=== PATIENT | female | born 1935 | race Caucasian/White ===

== ENCOUNTER 2021-03-06 21:52 | Emergency (ER) | payer MEDICARE, OTHER ==
[~2021-03-06] VITALS: Ht 167.6 cm; Wt 46.7 kg
--- NOTE | 2021-03-06 22:20 | NUR ---
PT BIBRA 87 FROM HOME WITH R EYE BROW LACERATION. PT ALSO PRESENTS WITH R SHOULDER PAIN S/P SLIP AND FALL. PT RESPONDS WHEN SPOKEN TO, BUT KEEPS EYES CLOSED. PT ALERT AND ORIENTED X3. HAS A SCRATCH PRESENT ON R SHOULDER.
[2021-03-06] MEDS ORDERED: TDAP [DIPH/PERTUSSIS/TET] 0.5 ML VIAL IM ONE ×2 (22:22→22:30)
[2021-03-06] MEDS ORDERED: IV NS 0.9% 1,000 ML BAG IV ONE (22:30)
--- NOTE | 2021-03-06 22:34 | NUR ---
rad at bedside.
--- NOTE | 2021-03-06 22:51 | NUR ---
PT GOING TO CT.
--- NOTE | 2021-03-06 22:55 | NUR ---
UPDATED BOTH SONS IN THE WAITING ROOM REQUEST PER PT.
--- NOTE | 2021-03-06 23:03 | NUR ---
pt returned from ct.
[2021-03-06] MEDS ORDERED: ACETAMINOPHEN W/ CODEINE#3 1 EA TABLET ONE (23:17)
[2021-03-06] MEDS ORDERED: ACETAMINOPHEN W/ CODEINE#3 1 EA TABLET PO ONE (23:30)
[2021-03-06] MEDS ORDERED: hydrALAZINE HCL IV 20 MG VIAL ONE (23:30)
[2021-03-06] MEDS ORDERED: ONDANSETRON HCL/PF 4 MG/2 ML VIAL ONE (23:30)
[2021-03-06] MEDS ORDERED: ACETAMINOPHEN 325 MG TABLET PO ONE (23:30)
[2021-03-06] MEDS ORDERED: MECLIZINE HCL 25 MG TABLET ONE (23:31)
[2021-03-06] MEDS ORDERED: LIDOCAINE 1%-EPI 1:100,000 20 ML VIAL ONE (23:37)
[2021-03-06] MEDS ORDERED: ACETAMINOPHEN ES 500 MG TABLET ONE (23:58)
[2021-03-07 00:27] VITALS: BP 111/60
--- NOTE | 2021-03-07 00:27 | NUR ---
Patient discharged to home in stable condition. Written and verbal after care instructions given. Patient verbalizes understanding of instruction RX given.
== END 2021-03-07 00:28 | disposition home or self-care (01) ==
LOC: ER 21:54
DX: S01.81XA Laceration without foreign body of other part of head, initial encounter (principal); S40.011A Contusion of right shoulder, initial encounter; R51.9 Headache, unspecified; I10 Essential (primary) hypertension; Z85.118 Personal history of other malignant neoplasm of bronchus and lung; Z88.5 Allergy status to narcotic agent; W01.198A Fall on same level from slipping, tripping and stumbling with subsequent striking against other object, initial encounter; Y93.89 Activity, other specified; Y92.89 Other specified places as the place of occurrence of the external cause; Y99.8 Other external cause status
CPT/HCPCS: 70450; 72125; 73030; 90471; 90715; 96360; 99285; A6403; J3490; J7030; J0360; J2405; J8597

== ENCOUNTER 2021-12-15 21:03 | Inpatient (IN) | payer MEDICARE, OTHER ==
[~2021-12-15] VITALS: Ht 170.2 cm; Wt 45.8 kg
--- NOTE | 2021-12-15 21:45 | NUR ---
[id number]. NAUSEA, VOMMITNG AND DIARRHEA X 2 DAYS. TEMP 100.7. PLACED ON BED, AAOX4, NO WEAKNESS ABLE TO WALK VERBALIZE.
--- NOTE | 2021-12-15 22:20 | NUR ---
AT BED SIDE
[2021-12-15] MEDS ORDERED: ONDANSETRON HCL/PF 4 MG/2 ML VIAL IVP ONE (23:00)
[2021-12-15] MEDS ORDERED: IV NS 0.9% 500 ML BAG IV ONE (23:00)
[2021-12-15] MEDS ORDERED: ACETAMINOPHEN ES 500 MG TABLET PO ONE (23:00)
[2021-12-15 23:08] LABS: HEMATOCRIT 31 % (33-45); HEMOGLOBIN 10.1 g/dL (11.5-14.8); LYMPHOCYTES # (AUTO) 1.2 K/uL (0.8-4.8); LYMPHOCYTES % (AUTO) 9.8 % (20.0-44.0); MONOCYTES # (AUTO) 1.6 K/uL (0.1-1.30); NEUTROPHILS # (AUTO) 9.1 K/uL (1.8-8.9); RED BLOOD CELL COUNT(AUTO) 3.49 MIL/uL (4.0-5.2)
[2021-12-15 23:14] LABS: BASOPHILS % (AUTO) 0.3 % (0.0-2.0); EOSINOPHILS % (AUTO) 0.5 % (0.0-6.0); MEAN CORPUSCULAR HGB CONC 33 g/dl (31.0-36.0); MEAN CORPUSCULAR VOLUME 87 fL (82-100); MONOCYTES % (AUTO) 13.3 % (2.0-12.0); NEUTROPHILS % (AUTO) 76.1 % (43.0-81.0); PLATELET COUNT (AUTO) 162 K/uL (150-450)
[2021-12-15] MEDS ORDERED: ONDANSETRON HCL/PF 4 MG/2 ML VIAL ONE (23:16)
[2021-12-15] MEDS ORDERED: ACETAMINOPHEN 325 MG TABLET ONE (23:16)
--- NOTE | 2021-12-15 23:25 | NUR ---
PATIENT WENT FOR CT ABDOMEN AND PELVIS [facility]IA [facility]
[2021-12-15 23:55] LABS: BAND % (MANUAL) 2 % (0.0-5.0); LYMPHOCYTES % (MANUAL) 12 % (16-48)
[2021-12-15 23:56] LABS: EOSINOPHILS % (MANUAL) 1 % (0-4); MONOCYTES % (MANUAL) 10 % (0-11.0); NEUTROPHILS % (MANUAL) 75 (42-76)
--- NOTE | 2021-12-16 00:08 | NUR ---
COVID SWAB COLLECTED
[2021-12-16] MEDS ORDERED: ASPIRIN 325 MG TABLET ONE (00:27)
[2021-12-16] MEDS ORDERED: IV NS 0.9% 1,000 ML BAG IV ONE (00:30)
[2021-12-16] MEDS ORDERED: ASPIRIN 325 MG TABLET PO ONE (00:30)
[2021-12-16 00:47] LABS: CALCIUM, SERUM 9.5 mg/dL (8.5-10.1); CARBON DIOXIDE 22 mmol/L (21-32); CHLORIDE 103 mmol/L (98-107); CREATININE 0.8 mg/dL (0.6-1.3); GLUCOSE 111 mg/dL (74-106); SODIUM SERUM 134 mmol/L (136-145); UREA NITROGEN, BLOOD 22 mg/dL (7-18)
[2021-12-16 01:18] LABS: ALANINE AMINOTRANSFERASE 20 U/L (12-78); ALKALINE PHOSPHATASE 198 U/L (46-116); ASPARTATE AMINOTRANSFERASE 39 U/L (15-37); BILIRUBIN,DIRECT 0.1 mg/dL (0.0-0.2); TOTAL PROTEIN, SERUM 6.9 g/dL (6.4-8.2)
--- NOTE | 2021-12-16 01:33 | NUR ---
EMT AT BEDSIDE FOR REPEAT EKG.
--- NOTE | 2021-12-16 01:48 | NUR ---
URINE COLLECTED AND SENT TO LAB
[2021-12-16 02:15] LABS: BILIRUBIN,URINE NEGATIVE (NEGATIVE); COLOR,URINE YELLOW (YELLOW); LEUKOCYTE ESTERASE ,URINE NEGATIVE (NEGATIVE); NITRITE, URINE NEGATIVE (NEGATIVE); PH,URINE 5.5 (5.0-8.0); PROTEIN,URINE NEGATIVE (NEGATIVE); UGLUCOSE NEGATIVE (NEGATIVE); UROBILINOGEN,URINE 0.2 EU/dL (0.2)
--- NOTE | 2021-12-16 02:46 | NUR ---
TROPONIN 109
--- NOTE | 2021-12-16 03:10 | NUR ---
MRSA SWAB COLLECTED AND SENT TO LAB. PATIENT'S BELONGINGS LIST DONE.
--- NOTE | 2021-12-16 03:15 | NUR ---
REPORT GIVEN TO LUDMILA PEARCE
[2021-12-16] MEDS ORDERED: HYDROCODONE/APAP 5/325MG TABLET PO PRN (03:30)
[2021-12-16] MEDS ORDERED: MAGNESIUM HYDROXIDE 30 ML UDC PO PRN (03:30)
[2021-12-16] MEDS ORDERED: ACETAMINOPHEN 325 MG TABLET PO PRN (03:30)
[2021-12-16] MEDS ORDERED: ONDANSETRON HCL/PF 4 MG/2 ML VIAL IVP PRN (03:30)
[2021-12-16] MEDS ORDERED: Z GUARD REMEDY 4 OZ OINT TP PRN (03:30)
--- NOTE | 2021-12-16 03:50 | NUR ---
TELE/DETAIL SERGEANT NOTE RECEIVED PT FROM E.R. VIA RENEE TO [id number]. PT AWAKE, A/OX4, ABLE TO VERBALIZE ALL NEEDS. PT REPORTED SHE N/V AND DIARRHEA FOR 2 DAYS AND CAME TO THE E.R. NO FURTHER DIARRHEA UPON ADMISSION. DENIES ANY NAUSEA AT THIS TIME, DENIES ANY DUTTA/DIZZINESS. RESPIRATIONS EVEN/UNLABORED. ON ROOM AIR, SPO2 98%. IV SITE: R-FA #20G INTACT/PATENT/FLUSHES WELL. PT ABLE TO AMBULATE; STATES SHE USES A CANE AT HOME BUT ONLY WHEN SHE GOES OUT, OTHERWISE REPORTS SHE'S STABLE AMBULATING INSIDE HER HOME. PT PROVIDED WITH BEDSIDE COMMODE. ALL SAFETY INSTRUCTIONS PROVIDED. ORIENTED TO UNIT AND STAFF, AND PROVIDED HEALTH AND MED TEACHINGS. PT VERBALIZED UNDERSTANDING. CONNECTED TO TELE MONITOR, CURRENTLY READING SB, HR 50. SAFETY MEASURES IN PLACE, BED IN LOWEST LOCKED POSITION, S/R UPX2, CALL LIGHT WITHIN REACH. WILL CONT TO MONITOR.
--- NOTE | 2021-12-16 03:53 | NUR ---
TRANSFERRED TO THIRD FLOOR UNDER ACLS.
--- NOTE | 2021-12-16 04:15 | NUR ---
RN NOTE PT'S BP 86/40, WITH MANUAL BP RE-CHECK SAME LEVEL. PT AWAKE, NO CHANGE IN LOC. REPORTED TO ON-CALL, [facility] WITH ORDER TO GIVE IV LR 1L BOLUS
[2021-12-16] MEDS ORDERED: IV LR 1000 ML 1,000 ML IV ONE (04:30)
[2021-12-16 04:44] VITALS: BP 86/40
[2021-12-16] MEDS ORDERED: CIPROFLOXACIN IV RTU 200 ML IV ONE (05:10)
[2021-12-16] MEDS ORDERED: METRONIDAZOLE 500MG/ NS 100ML 100 ML IV ONE (05:10)
[2021-12-16] MEDS: CIPROFLOXACIN IV RTU 400 MG in PREMIX 1 EA IV SCH ×2 (05:25→16:31)
--- NOTE | 2021-12-16 05:48 | NUR ---
RN NOTE BP 98/65, HR 57. PT INTERMITTENTLY SLEEPING, EASILY AROUSABLE. NO DISTRESS.
[2021-12-16] MEDS: METRONIDAZOLE 500MG/ NS 100ML 500 MG in PREMIX 1 EA IV SCH ×3 (06:46→20:58)
[2021-12-16 06:48] LABS: BASOPHILS % (AUTO) 0.2 % (0.0-2.0); EOSINOPHILS % (AUTO) 0.3 % (0.0-6.0); HEMATOCRIT 26 % (33-45); HEMOGLOBIN 8.6 g/dL (11.5-14.8); LYMPHOCYTES # (AUTO) 1.6 K/uL (0.8-4.8); MEAN CORPUSCULAR HGB CONC 33 g/dl (31.0-36.0); MEAN CORPUSCULAR VOLUME 89 fL (82-100); MONOCYTES # (AUTO) 1.2 K/uL (0.1-1.30); MONOCYTES % (AUTO) 14.8 % (2.0-12.0); NEUTROPHILS # (AUTO) 5.4 K/uL (1.8-8.9); NEUTROPHILS % (AUTO) 65.7 % (43.0-81.0); PLATELET COUNT (AUTO) 112 K/uL (150-450); RED BLOOD CELL COUNT(AUTO) 2.93 MIL/uL (4.0-5.2); WHITE BLOOD COUNT (AUTO) 8.2 K/uL (4.3-11.0)
--- NOTE | 2021-12-16 06:51 | NUR ---
RN NOTE BP 104/56 AT THIS TIME. TELE MONITOR READING SB, HR 56. PT AWAKE, ASSISTED TO BEDSIDE COMMODE TO VOID. NO ACUTE DISTRESS. SAFETY MEASURES MAINTAINED.
[2021-12-16] MEDS ORDERED: SPIR25TA6 PO (07:13)
[2021-12-16] MEDS ORDERED: PRAV20TA4 PO (07:13)
[2021-12-16] MEDS ORDERED: TRAV2.5D7 EACHEYE (07:13)
[2021-12-16] MEDS ORDERED: AZIT250T13 PO (07:13)
[2021-12-16] MEDS ORDERED: DILT180T PO (07:13)
[2021-12-16] MEDS ORDERED: COLE625T14 PO (07:13)
[2021-12-16] MEDS ORDERED: PROP20TA19 PO (07:13)
[2021-12-16] MEDS ORDERED: MONT10TA22 PO (07:13)
--- NOTE | 2021-12-16 07:19 | NUR ---
REAMING MACHINE OPERATOR NOTES RECEIVED PATIENT IN BED AWAKE. ALERT AND ORIENTED TIMES 4. NO PAIN NOTED. NO SOB NOTED. NO DISTRESS NOTED. ABLE TO MAKE NEEDS KNOWN. IV ACCESS ON THE RFA #20 INTACT AND PATENT . ON TELE MONITOR READING SR. MONITORING FOR LOW BP. CURRENTLY YQ=652/49. ALL SAFETY MEASURES IN PLACE . BED SIDE COMMODE CLOSE TO THE PATIENT.BED LOCKED IN THE LOWEST POSITION. CALL LIGHT AND TABLE IN REACH. WILL CONTINUE TO MONITOR CLOSELY.
[2021-12-16] MEDS: PANTOPRAZOLE 40 MG TABLET.DR PO SCH (07:41)
[2021-12-16] MEDS ORDERED: CYAN500T64 PO (07:57)
[2021-12-16] MEDS ORDERED: ASPI-1169 PO (07:57)
[2021-12-16] MEDS ORDERED: CRAN400C PO (07:57)
[2021-12-16] MEDS ORDERED: FAMO40TA7 PO (07:57)
[2021-12-16] MEDS ORDERED: AMYL1CAP58 PO (07:57)
[2021-12-16] MEDS ORDERED: GUAI600T53 PO (07:57)
[2021-12-16] MEDS ORDERED: LACT1CAP57 PO (07:57)
[2021-12-16] MEDS ORDERED: CHOL200013 PO (07:57)
[2021-12-16 08:00] VITALS: BP 89/41
[2021-12-16 08:37] LABS: CALCIUM, SERUM 8.8 mg/dL (8.5-10.1); CREATININE 1.1 mg/dL (0.6-1.3); MAGNESIUM 1.3 mg/dL (1.8-2.4); POTASSIUM 4.3 mmol/L (3.5-5.1)
[2021-12-16] MEDS: ENOXAPARIN SODIUM 40 MG/0.4 ML DISP.SYRIN SQ SCH (08:44)
[2021-12-16] MEDS: ASPIRIN 81 MG TAB.CHEW PO SCH (09:04)
[2021-12-16] MEDS: MONTELUKAST SODIUM (10MG) 10 MG TABLET PO SCH (09:05)
[2021-12-16] MEDS: IV NS 0.9% 1,000 ML IV PRN (10:19)
[2021-12-16] MEDS: Magnesium 1GM/D5W 100ML PREMIX 100 ML IV SCH ×4 (10:28→12:30)
[2021-12-16 11:59] LABS: ALBUMIN 2.6 g/dL (3.4-5.0); BILIRUBIN,TOTAL 0.8 mg/dL (0.2-1.0); TOTAL PROTEIN, SERUM 5.8 g/dL (6.4-8.2)
[2021-12-16] MEDS: LIPASE/PROTEASE/AMYLASE 1 EACH CAPSULE.DR PO SCH ×2 (13:11→17:18)
[2021-12-16] MEDS ORDERED: MISCELLANEOUS MED 1 EA EA XX ONE (15:00)
[2021-12-16] MEDS ORDERED: MINERAL OIL 133 ML (PYXIS) 1 EA ENEMA RC ONE (15:30)
[2021-12-16 16:00] VITALS: BP 111/48
--- NOTE | 2021-12-16 17:00 | NUR ---
RN NOTES CALLED RADIOLOGY SPOKE WITH MEGAN FOR XR OF THE SMALL BOWEL FOLLOW-THROUGH. BUT HE STATED THEY ARE BUSY WITH ER AND THAT WILL NOT HAPPEN TODAY. IT WILL BE DONE TOMORROW MORNING.
--- NOTE | 2021-12-16 18:28 | NUR ---
STRIP MILL OPERATOR CLOSING NOTES PATIENT IN BED AWAKE. ALERT AND ORIENTED TIMES 4. NO PAIN NOTED. NO SOB NOTED. NO DISTRESS NOTED. ABLE TO MAKE NEEDS KNOWN. IV ACCESS ON THE RFA #20 INTACT AND PATENT . ON TELE MONITOR READING SR 72. MONITORING FOR LOW BP. PATIENT'S LATEST XE=095/48, P=64 ALL SAFETY MEASURES IN PLACE . ALL DUE MEDS GIVEN ORDERED. REPLACED MAGNESIUM WITH 400 ML MAGNESIUM. ENEMA GIVEN. PATIENT ABLE TO HAVE BOWEL MOVEMENT OF THE SMALL ROUND STOOL. NO PAIN NOTED. NO SOB NOTED.2 SONS VISITED THE PATIENT. PATIENT ABLE TO AMBULATE TO THE BATHROOM WITH ASSISTANCE AND SUPERVISION. BED LOCKED IN THE LOWEST POSITION. CALL LIGHT AND TABLE IN REACH. WILL ENDORSE FOR KENIA.
--- NOTE | 2021-12-16 19:30 | NUR ---
COMPLIANCE SPEC OPENING NOTE PATIENT AWAKE IN BED WATCHING TV, ALERT/ORIENTED X 4, PT ABLE TO MAKE NEEDS KNOWN. PT STABLE ON RA, NO S/S OF DISTRESS OR SOB NOTED, BREATHING EVEN AND UNLABORED. PATIENT ON TELE MONITOR READING SINUS RHYTHM, HR: 69. PATIENT IS AMBULATORY TO BATHROOM WITH SBA. IV ACCESS ON RIGHT FOREARM #20G INTACT AND INFUSING NS @ 100 ML/HR. SAFETY MEASURES IN PLACE: CALL LIGHT WITHIN REACH, SIDE RAILS UP X 2, BED LOCKED IN LOWEST POSITION, BED ALARM ON. WILL CONTINUE PLAN OF CARE
[2021-12-16 20:00] VITALS: BP 117/57
[2021-12-16] MEDS: LATANOPROST EYE DROP 0.005% 2.5 ML BOTTLE OP SCH (21:33)
--- NOTE | 2021-12-16 21:34 | NUR ---
STAMP MOUNTER NOTE LATANOPROST EYE DROPS NOT ADMINISTERED BECAUSE MEDICATION WAS NOT IN CASSETTE OR AT BEDSIDE. WILL ENDORSE TO DAY SHIFT IN THE AM TO CALL LAB
--- NOTE | 2021-12-16 22:44 | NUR ---
PT TRANSFERRED TO CARE AT 2220. PT STABLE. ASLEEP IN BED. BREATHING EVEN AND UNLABORED. WILL CONTINUE TO MONITOR.
[2021-12-17] VITALS: BP 127/64
[2021-12-17] MEDS: IV NS 0.9% 1,000 ML IV PRN (00:29)
[2021-12-17 04:00] VITALS: BP 144/68
[2021-12-17] MEDS: CIPROFLOXACIN IV RTU 400 MG in PREMIX 1 EA IV SCH ×2 (04:08→15:29)
[2021-12-17] MEDS: METRONIDAZOLE 500MG/ NS 100ML 500 MG in PREMIX 1 EA IV SCH ×3 (05:57→23:01)
[2021-12-17 06:27] LABS: HEMATOCRIT 29 % (33-45); HEMOGLOBIN 9.5 g/dL (11.5-14.8); LYMPHOCYTES # (AUTO) 1.1 K/uL (0.8-4.8); MEAN CORPUSCULAR HGB CONC 33 g/dl (31.0-36.0); MEAN CORPUSCULAR VOLUME 89 fL (82-100); NEUTROPHILS % (AUTO) 64.2 % (43.0-81.0); PLATELET COUNT (AUTO) 101 K/uL (150-450); RED BLOOD CELL COUNT(AUTO) 3.28 MIL/uL (4.0-5.2); WHITE BLOOD COUNT (AUTO) 6.2 K/uL (4.3-11.0)
--- NOTE | 2021-12-17 06:42 | NUR ---
RN CLOSING NOTES PT IN BED, ASLEEP, AWAKENS TO VERBAL STIMULI. AOx4, ABLE TO MAKE NEEDS KNOWN. ON RA AND TOLERATING WELL. NO SOB NOTED. NO S/SX OF RESPIRATORY DISTRESS NOTED. BREATHING EVEN AND UNLABORED. TELE MONITOR DETECTS SINUS RHYTHM IV ACCES IN LFA #20 G RUNNING NS @ 100 ML/HR. ALL ORDERS CARRIED OUT. ALL NEEDS MET. PT KEPT CLEAN AND DRY. SAFETY PRECAUTIONS IN PLACE: BED IN LOWEST, LOCKED POSITION, SIDERAILS UPx2, AND BRAKES ON. TABLE AND CALL LIGHT WITHIN REACH. WILL CONTINUE TO MONITOR.
[2021-12-17 06:46] LABS: CHOLESTEROL 94 mg/dL (<200); HDL CHOLESTEROL 33 mg/dL (40-60); LDL 46 mg/dL (0-99); TRIGLYCERIDES 54 mg/dL (30-150)
[2021-12-17 06:49] LABS: ALANINE AMINOTRANSFERASE 13 U/L (12-78); ALBUMIN 2.6 g/dL (3.4-5.0); ALKALINE PHOSPHATASE 153 U/L (46-116); ASPARTATE AMINOTRANSFERASE 14 U/L (15-37); BILIRUBIN,TOTAL 0.7 mg/dL (0.2-1.0); CHLORIDE 105 mmol/L (98-107); GLUCOSE 193 mg/dL (74-106); PHOSPHORUS 2.5 mg/dL (2.5-4.9); POTASSIUM 3.8 mmol/L (3.5-5.1); SODIUM SERUM 135 mmol/L (136-145); TOTAL PROTEIN, SERUM 6.1 g/dL (6.4-8.2); UREA NITROGEN, BLOOD 15 mg/dL (7-18)
--- NOTE | 2021-12-17 06:53 | NUR ---
RT NOTE EKG UNABLE TO BE PERFORMED DUE TO EQUIPMENT FAILURE. RN AWARE. RT FOOD SERVICE ASSOCIATE AWARE.
[2021-12-17 07:11] LABS: CALCIUM, SERUM 8.4 mg/dL (8.5-10.1); CARBON DIOXIDE 20 mmol/L (21-32); MAGNESIUM 1.5 mg/dL (1.8-2.4)
[2021-12-17 08:00] VITALS: BP 133/64
--- NOTE | 2021-12-17 08:00 | NUR ---
RN NOTES PATIENT AMBULATORY W/ STEADY GAIT, ABLE TO GO TO THE BATHROOM. NOT IN ACUTE DISTRESS. VERBALLY RESPONSIVE AND ABLE TO MAKE NEEDS KNOWN. IV LINE INTACT AND PATENT. SAFETY MEASURES IN PLACE.
[2021-12-17] MEDS: MONTELUKAST SODIUM (10MG) 10 MG TABLET PO SCH (08:23)
[2021-12-17] MEDS: LIPASE/PROTEASE/AMYLASE 1 EACH CAPSULE.DR PO SCH ×4 (08:23→18:48)
[2021-12-17] MEDS: ASPIRIN 81 MG TAB.CHEW PO SCH (08:23)
[2021-12-17] MEDS: ENOXAPARIN SODIUM 40 MG/0.4 ML DISP.SYRIN SQ SCH (08:23)
[2021-12-17] MEDS: PANTOPRAZOLE 40 MG TABLET.DR PO SCH (08:23)
[2021-12-17 10:29] LABS: MONOCYTES % (AUTO) 16.8 % (2.0-12.0)
--- NOTE | 2021-12-17 10:40 | NUR ---
RN NOTES PATIENT REFUSED TO SIGN CONSENT FOR CT ANGIO; DOES NOT WANT PROCEDURE TO BE DONE.
[2021-12-17] MEDS: METOPROLOL TARTRATE 50 MG TABLET PO SCH ×3 (11:26→18:48)
[2021-12-17] MEDS ORDERED: MAGNESIUM OXIDE 400 MG TABLET PO ONE (11:30)
[2021-12-17] MEDS ORDERED: DIATR MEGLU/DIATRIZOATE SODIUM 120 ML BOTTLE (GASTROGRAPHIN) ONE (11:59)
--- NOTE | 2021-12-17 13:56 | NUR ---
RN NOTES PATIENT RETURNED FROM RADIOLOGY VIA WHEELCHAIR ACCOMPANIED BY 1 TECH; KEPT NPO AT THIS TIME PER RADIOLOGY FOR X-RAY SERIES CONTINUATION.
[2021-12-17 16:00] VITALS: BP 129/63
--- NOTE | 2021-12-17 17:05 | NUR ---
RN NOTES MARYSOL, SON, AT BEDSIDE TO SEE PATIENT. REMINDED PATIENT THAT SHE'S STILL NPO STATUS FOLLOWING SMALL BOWEL X-RAY SERIES; VERBALIZED UNDERSTANDING.
--- NOTE | 2021-12-17 17:16 | NUR ---
RN NOTES PM MEDS ON HOLD D/T NPO STATUS FOR SMALL BOWEL SERIES.
--- NOTE | 2021-12-17 17:47 | NUR ---
RN NOTES SPOKE W/ BHARATH FROM RADIOLOGY. PER BHARATH, PATIENT NEEDS TO BE ON RIGHT LATERAL POSITION MUCH POSSIBLE FOR X-RAY IMAGE LATER; REMAIN NPO AT THIS TIME. PATIENT MADE AWARE AND VERBALIZED UNDERSTANDING.
--- NOTE | 2021-12-17 18:23 | NUR ---
RN NOTES [facility] AT BEDSIDE FOR X-RAY. OKAY FOR PATIENT TO HAVE SOME WATER BUT NO FOOD FOR NOW.
--- NOTE | 2021-12-17 19:45 | NUR ---
CLINICAL APPEALS RN OPENING NOTE PATIENT AWAKE IN BED WATCHING TV, ALERT/ORIENTED X 4, PT ABLE TO MAKE NEEDS KNOWN. PT STABLE ON RA, NO S/S OF DISTRESS OR SOB NOTED, BREATHING EVEN AND UNLABORED. PATIENT IS AMBULATORY TO BATHROOM WITH SBA, HAD 1 EPISODE OF DIARRHEA SINCE XR SMALL BOWEL FOLLOW THROUGH. IV ACCESS ON LEFT FOREARM #20G INTACT AND INFUSING NS @ 100 ML/HR. SAFETY MEASURES IN PLACE: CALL LIGHT WITHIN REACH, SIDE RAILS UP X 2, BED LOCKED IN LOWEST POSITION, BED ALARM ON. WILL CONTINUE PLAN OF CARE
[2021-12-17 20:00] VITALS: BP 138/70
--- NOTE | 2021-12-17 21:30 | NUR ---
MS RN NOTE FLAGYL NOT AVAILABLE IN MED ROOM OR OMNICELL. MEDICATION ORDER GIVEN TO NURSING STEAM TENDER. AWAITING TO SEE IF MEDICATION IS AVAILABLE IN HOSPITAL
[2021-12-17] MEDS ORDERED: METRONIDAZOLE 500MG/ NS 100ML 200 ML IV ONE (22:22)
[2021-12-17] MEDS: LATANOPROST EYE DROP 0.005% 2.5 ML BOTTLE OP SCH (22:29)
[2021-12-18] MEDS: IV NS 0.9% 1,000 ML IV PRN (01:40)
[2021-12-18] MEDS: CIPROFLOXACIN IV RTU 400 MG in PREMIX 1 EA IV SCH (03:50)
[2021-12-18] MEDS: METRONIDAZOLE 500MG/ NS 100ML 500 MG in PREMIX 1 EA IV SCH ×2 (05:46→12:25)
[2021-12-18] MEDS: METOPROLOL TARTRATE 50 MG TABLET PO SCH ×2 (05:56)
--- NOTE | 2021-12-18 06:43 | NUR ---
MS RN CLOSING NOTES PATIENT AWAKE IN BED WATCHING TV, ALERT/ORIENTED X 4, PT ABLE TO MAKE NEEDS KNOWN. PT STABLE ON RA, NO S/S OF DISTRESS OR SOB NOTED, BREATHING EVEN AND UNLABORED. PATIENT HAD 3 EPISODES OF DIARRHEA AT THE BEGINNING OF SHIFT S/P XR SMALL BOWEL FOLLOW THROUGH, PATIENT NO LONGER EXPERIENCING DIARRHEA. IV ACCESS ON LEFT FOREARM #20G INTACT AND INFUSING NS @ 100 ML/HR. MEDICATIONS GIVEN ORDERED, PT NEEDS MET THROUGHOUT SHIFT, NO SIGNIFICANT CHANGES. SAFETY MEASURES IN PLACE: CALL LIGHT WITHIN REACH, SIDE RAILS UP X 2, BED LOCKED IN LOWEST POSITION, BED ALARM ON. WILL ENDORSE TO DAY SHIFT NURSE FOR CONTINUITY OF CARE
--- NOTE | 2021-12-18 07:00 | NUR ---
MS RN OPENING NOTE PATIENT A/O X 4, ABLE TO MAKE NEEDS KNOWN. STABLE ON RA WITH NO S/S RESPIRATORY DISTRESS OR SOB NOTED. NO COMPLAINTS OF PAIN OR DISCOMFORT AT THIS TIME. IV ACCESS ON LEFT FOREARM #20G CLEAN, INTACT, AND INFUSING NS @ 100 ML/HR. SAFETY MEASURES IN PLACE: CALL LIGHT WITHIN REACH, SIDE RAILS UP X 2, BED LOCKED IN LOWEST POSITION, BED ALARM ON. WILL CONTINUE TO MONITOR.
[2021-12-18 07:02] LABS: BASOPHILS % (AUTO) 0.2 % (0.0-2.0); EOSINOPHILS % (AUTO) 0.3 % (0.0-6.0); HEMATOCRIT 27 % (33-45); HEMOGLOBIN 8.9 g/dL (11.5-14.8); LYMPHOCYTES # (AUTO) 0.7 K/uL (0.8-4.8); LYMPHOCYTES % (AUTO) 8.9 % (20.0-44.0); MEAN CORPUSCULAR HGB CONC 33 g/dl (31.0-36.0); MEAN CORPUSCULAR VOLUME 89 fL (82-100); MONOCYTES # (AUTO) 1.1 K/uL (0.1-1.30); MONOCYTES % (AUTO) 14.3 % (2.0-12.0); NEUTROPHILS # (AUTO) 5.6 K/uL (1.8-8.9); NEUTROPHILS % (AUTO) 76.3 % (43.0-81.0); PLATELET COUNT (AUTO) 87 K/uL (150-450); RED BLOOD CELL COUNT(AUTO) 3.05 MIL/uL (4.0-5.2); WHITE BLOOD COUNT (AUTO) 7.4 K/uL (4.3-11.0)
[2021-12-18 07:24] LABS: ALBUMIN 2.3 g/dL (3.4-5.0); BILIRUBIN,TOTAL 0.9 mg/dL (0.2-1.0); PHOSPHORUS 1.8 mg/dL (2.5-4.9); TOTAL PROTEIN, SERUM 5.6 g/dL (6.4-8.2)
[2021-12-18] MEDS: PANTOPRAZOLE 40 MG TABLET.DR PO SCH (07:41)
[2021-12-18] MEDS: LIPASE/PROTEASE/AMYLASE 1 EACH CAPSULE.DR PO SCH ×2 (07:41→12:22)
[2021-12-18 08:00] VITALS: BP 112/50
[2021-12-18 08:24] LABS: CALCIUM, SERUM 8.3 mg/dL (8.5-10.1); CREATININE 0.8 mg/dL (0.6-1.3); MAGNESIUM 1.4 mg/dL (1.8-2.4); POTASSIUM 3.5 mmol/L (3.5-5.1)
[2021-12-18] MEDS: ASPIRIN 81 MG TAB.CHEW PO SCH (08:54)
[2021-12-18] MEDS: MONTELUKAST SODIUM (10MG) 10 MG TABLET PO SCH (08:54)
[2021-12-18] MEDS: ENOXAPARIN SODIUM 40 MG/0.4 ML DISP.SYRIN SQ SCH (08:57)
[2021-12-18] MEDS: MAGNESIUM OXIDE 400 MG TABLET PO SCH ×2 (09:23→10:07)
[2021-12-18] MEDS ORDERED: K PHOS NEUTRAL 250 MG TABLET PO ONE (09:30)
[2021-12-18] MEDS ORDERED: METOPROLOL TARTRATE 50 MG TABLET PO SCH (12:00)
--- NOTE | 2021-12-18 14:15 | NUR ---
MS DRIVER TRAINEE NOTES PATIENT INFORMED OF MD DISCHARGE ORDER. PATIENT WAS PROVIDED WITH MD DISCHARGE INSTRUCTIONS AND SIGNED FORM NOTING UNDERSTANDING OF MD INSTRUCTIONS. PATIENT ALSO VERBALIZED POSSESSION OF ALL BELONGINGS AND SIGNED BELONGINGS LIST. PICTURES TAKEN OF PATIENT SKIN PRIOR TO D/C AND PLACED IN CHART. IV LINE AND ID BAND REMOVED. PATIENT WAS PROVIDED WITH ALL DISCHARGE PAPERWORK AND TRANSPORTED OFF OF UNIT VIA WHEELCHAIR ACCOMPANIED BY FIRE LIEUTENANT AND HER TWO ADULT SONS. PATIENT STABLE AT TIME OF DISCHARGE.
== END 2021-12-18 14:15 | disposition home health service (06) | DRG 388 ==
LOC: ER 21:04 → TELE 12-16 03:10 → MED 12-17 09:52
DX: K56.41 Fecal impaction (principal); I21.4 Non-ST elevation (NSTEMI) myocardial infarction; K56.7 Ileus, unspecified; K86.1 Other chronic pancreatitis; E87.1 Hypo-osmolality and hyponatremia; Z20.822 Contact with and (suspected) exposure to COVID-19; Z90.49 Acquired absence of other specified parts of digestive tract; Z85.118 Personal history of other malignant neoplasm of bronchus and lung; I10 Essential (primary) hypertension; Z88.5 Allergy status to narcotic agent; R79.89 Other specified abnormal findings of blood chemistry; Z98.890 Other specified postprocedural states; K83.8 Other specified diseases of biliary tract; K31.89 Other diseases of stomach and duodenum; N20.0 Calculus of kidney; I72.2 Aneurysm of renal artery; I71.4 Abdominal aortic aneurysm, without rupture; N81.10 Cystocele, unspecified; N32.89 Other specified disorders of bladder; M47.816 Spondylosis without myelopathy or radiculopathy, lumbar region; D64.9 Anemia, unspecified; I25.10 Atherosclerotic heart disease of native coronary artery without angina pectoris; E83.42 Hypomagnesemia; E83.39 Other disorders of phosphorus metabolism
CPT/HCPCS: 36415; 71045-TC; 74250-TC; 80048-TC; 80053-TC; 80061-TC; 80076-TC; 82962-TC; 83540-TC; 83605-TC; 83690-TC; 83735-TC; 83880; 84100-TC; 84484-TC; 85025-TC; 85730-TC; 87040-TC; 87081-TC; 87086-TC; 93307-TC; A4216; C9803; G0378; J0744; J1650; J2405; J3475; J7030; J7040; J7120; Q9963

== ENCOUNTER 2022-03-30 18:58 | Inpatient (IN) | payer MEDICARE, OTHER ==
[~2022-03-30] VITALS: Ht 167.6 cm; Wt 54.9 kg
[~2022-03-30 18:58] MED LIST: AMYL1CAP58 PO; ASPI-1169 PO; AZIT250T13 PO; CHOL200013 PO; COLE625T14 PO; CRAN400C PO; CYAN500T64 PO; DILT180T PO; FAMO40TA7 PO; GUAI600T53 PO; LACT1CAP57 PO; MONT10TA22 PO; PRAV20TA4 PO; PROP20TA19 PO; SPIR25TA6 PO; TRAV2.5D7 EACHEYE
--- NOTE | 2022-03-30 19:08 | NUR ---
The patient is bibra85 from home, c/o chronic abd pain and diarrhea. Rates pain 5/10. Will continue to monitor the patient.
--- NOTE | 2022-03-30 19:13 | NUR ---
REPORT GIVEN TO NURSE MONTEZ FOR KEINA
--- NOTE | 2022-03-30 19:20 | NUR ---
SEEN BY DR VELA AT BEDSIDE
--- NOTE | 2022-03-30 19:20 | NUR ---
SEEN THIS 87YO FEMALE WITH CC OF ABDOMINAL PAIN. PATIENT IS LYING IN BED. AAOX4. SHE CLAIMED THAT SHE UNDERGONE MULTIPLE ABDOMINAL SURGERY AND AWARE ABOUT THE BILATERAL LEG PITTING EDEMA ST3. ATTACHED TO MONITOR. VITALS CHECKED.
--- NOTE | 2022-03-30 19:24 | NUR ---
BLOOD DRAWN AND SENT TO LAB
--- NOTE | 2022-03-30 19:32 | NUR ---
PT BROUGHT TO CT DEPT
[2022-03-30 19:46] LABS: ALANINE AMINOTRANSFERASE 11 U/L (12-78); ALBUMIN 2.3 g/dL (3.4-5.0); ALKALINE PHOSPHATASE 144 U/L (46-116); ASPARTATE AMINOTRANSFERASE 20 U/L (15-37); BILIRUBIN,DIRECT 0.2 mg/dL (0.0-0.2); BILIRUBIN,TOTAL 0.5 mg/dL (0.2-1.0); CARBON DIOXIDE 24 mmol/L (21-32); CHLORIDE 102 mmol/L (98-107); CREATININE 0.7 mg/dL (0.6-1.3); GLUCOSE 133 mg/dL (74-106); POTASSIUM 2.9 mmol/L (3.5-5.1); SODIUM SERUM 138 mmol/L (136-145); TOTAL PROTEIN, SERUM 5.5 g/dL (6.4-8.2); UREA NITROGEN, BLOOD 25 mg/dL (7-18)
[2022-03-30 19:52] LABS: BASOPHILS % (AUTO) 0.1 % (0.0-2.0); EOSINOPHILS % (AUTO) 1.1 % (0.0-6.0); HEMATOCRIT 34 % (33-45); LYMPHOCYTES # (AUTO) 2.1 K/uL (0.8-4.8); LYMPHOCYTES % (AUTO) 23.9 % (20.0-44.0); MEAN CORPUSCULAR HGB CONC 33 g/dl (31.0-36.0); MEAN CORPUSCULAR VOLUME 88 fL (82-100); MONOCYTES # (AUTO) 0.7 K/uL (0.1-1.30); MONOCYTES % (AUTO) 8.7 % (2.0-12.0); NEUTROPHILS # (AUTO) 5.7 K/uL (1.8-8.9); NEUTROPHILS % (AUTO) 66.2 % (43.0-81.0); PLATELET COUNT (AUTO) 185 K/uL (150-450); RED BLOOD CELL COUNT(AUTO) 3.83 MIL/uL (4.0-5.2); WHITE BLOOD COUNT (AUTO) 8.6 K/uL (4.3-11.0)
[2022-03-30 20:20] LABS: CALCIUM, SERUM 6.1 mg/dL (8.5-10.1)
[2022-03-30 20:22] LABS: LIPASE < 10 U/L (73-393)
--- NOTE | 2022-03-30 20:22 | NUR ---
LIPASE 3 CALCIUM 6.1
--- NOTE | 2022-03-30 20:26 | NUR ---
DR MANDEL FROM RADIOLOGY CALLED TO SPEAK TO MAYKEL LUNSFORD.
--- NOTE | 2022-03-30 20:27 | NUR ---
URINE SPECIMEN SENT TO LAB
[2022-03-30] MEDS ORDERED: PIPERACILLIN /TAZOBACTAM 3.375 G in IV D5W 50 ML IV ONE (20:30)
[2022-03-30] MEDS ORDERED: IV NS 0.9% 1,000 ML BAG IV ONE (20:30)
[2022-03-30] MEDS ORDERED: VANCOMYCIN 1 GM in IV D5W 250 ML IV ONE (20:30)
--- NOTE | 2022-03-30 20:30 | NUR ---
DR. JORDAN ON THE PHONE WITH DR. VELA.
--- NOTE | 2022-03-30 20:35 | NUR ---
COVID SWAB DONE AND SENT TO LAB
[2022-03-30] MEDS ORDERED: PIPERACILLIN /TAZOBACTAM 3.375 G VIAL IV ONE (20:38)
--- NOTE | 2022-03-30 20:50 | NUR ---
EVITA HOOVER NP ON THE PHONE WITH DR. VELA
[2022-03-30] MEDS ORDERED: FENTANYL PF 100MCG/2ML AMPUL IV ONE (21:00)
[2022-03-30 21:02] LABS: BILIRUBIN,URINE NEGATIVE (NEGATIVE); LEUKOCYTE ESTERASE ,URINE MODERATE (NEGATIVE); NITRITE, URINE NEGATIVE (NEGATIVE); PROTEIN,URINE TRACE mg/dl (NEGATIVE); UGLUCOSE NEGATIVE (NEGATIVE); UROBILINOGEN,URINE 0.2 EU/dL (0.2)
[2022-03-30 21:03] LABS: COLOR,URINE YELLOW (YELLOW)
--- NOTE | 2022-03-30 21:28 | NUR ---
SEEN BY DR JORDAN AT BEDSIDE. DISCUSSING THE CONDITION WITH FAMILY MEMBER.
[2022-03-30] MEDS ORDERED: Calcium Gluconate 1GM/10ML 4.65 MEQ in IV NS 0.9% 100 ML IV ONE ×2 (21:30→22:28)
[2022-03-30] MEDS ORDERED: MORPHINE SULFATE INJ 2 MG/ML DISP.SYRIN IV PRN (21:30)
[2022-03-30] MEDS ORDERED: ACETAMINOPHEN 650 MG/SUPP.RECT RC PRN (21:30)
[2022-03-30] MEDS ORDERED: PANTOPRAZOLE 40 MG VIAL IV SCH (21:30)
[2022-03-30] MEDS ORDERED: Z GUARD REMEDY 4 OZ OINT TP PRN (21:30)
[2022-03-30] MEDS ORDERED: POTASSIUM CL. PREMIX PERIPHER. 50 ML IV SCH ×2 (21:30→23:28)
[2022-03-30] MEDS ORDERED: VANCOMYCIN 1 GM VIAL ONE (21:30)
[2022-03-30] MEDS ORDERED: IV NS 0.9% 1,000 ML IV PRN (21:30)
[2022-03-30] MEDS ORDERED: ONDANSETRON HCL/PF 4 MG/2 ML VIAL IVP PRN (21:30)
[2022-03-30] MEDS ORDERED: FENTANYL PF 100MCG/2ML AMPUL ONE ×2 (21:31→22:55)
[2022-03-30 21:34] LABS: BACTERIA,URINE Many /HPF (None Seen); SQUAMOUS EPITHELIAL CELL,UR Many /HPF (None Seen); WBC,URINE 51-80 /HPF (0-3)
[2022-03-30 21:35] LABS: MUCUS,URINE NO /LPF (None Seen)
--- NOTE | 2022-03-30 21:55 | NUR ---
DR JORDAN WANTS TO HOLD THE NG TUBE INSERTION IN ER. HE SAID THEY WILL DO IT IN OR IF PATIENT WILL BE DOING SURGERY.
--- NOTE | 2022-03-30 22:32 | NUR ---
CONSENT FOR SURGERY AND BLOOD OBTAINED FROM PT'S SON, ANNA
--- NOTE | 2022-03-30 22:47 | NUR ---
ROOM 255 ICU
[2022-03-30] MEDS ORDERED: ROCURONIUM BROMIDE 50 MG/5 ML ONE (22:55)
--- NOTE | 2022-03-30 22:55 | NUR ---
PATIENT FOR EXPLORATORY LAPAROTOMY POSSIBLE BOWEL RESECTION; POSSIBLE OSTOMY. CONSENT FOR SURGERY AND BLOOD TRANSFUSION SIGNED BY LYUDMILA MARQUEZ. PATIENT BEEN MADE AWARE ABOUT THE PROCEDURE
--- NOTE | 2022-03-30 22:58 | NUR ---
CALL FROM LUDMILA MALAVE REGARDING PREOP CHECKLIST, CONSENTS AND NPO.
--- NOTE | 2022-03-30 23:00 | NUR ---
PATIENT CHANGED TO GOWN, DENTURES, PERSONAL BELONGINGS, CELLPHONE, WALLET AND PURSE C/O SON ANNA. OR TECH WILL RE-DO THE CONSENT AT THE O.R. SHE WANTS PATIENT TO SIGN CONSENT SINCE SHE IS AAOX4. LYUDMILA ANNA MADE AWARE.
--- NOTE | 2022-03-30 23:17 | NUR ---
PATIENT IS TRANSFERRED TO O.R. ACCOMPANIED BY O.R. TECH.
[2022-03-30] MEDS ORDERED: BUPIVACAINE MPF W/EPI 0.25% 30 ML VIAL ONE (23:33)
[2022-03-30] MEDS ORDERED: LIDOCAINE 1% INJ 50 ML MDV IJ ONE (23:33)
[2022-03-31] VITALS (23 sets, daily range): BP systolic 100–134; BP diastolic 33–77
[2022-03-31] MEDS ORDERED: Z GUARD REMEDY 4 OZ OINT TP PRN (00:45)
[2022-03-31] MEDS ORDERED: IV NS 0.9% 1,000 ML IV PRN (00:45)
[2022-03-31] MEDS ORDERED: ONDANSETRON HCL/PF 4 MG/2 ML VIAL IVP PRN (00:45)
[2022-03-31] MEDS ORDERED: ACETAMINOPHEN 650 MG/SUPP.RECT RC PRN (00:45)
[2022-03-31] MEDS ORDERED: MORPHINE SULFATE INJ 2 MG/ML DISP.SYRIN IV PRN (00:45)
[2022-03-31] MEDS ORDERED: BACITRACIN ZINC OINT PACKET 1 EA PACKET TP ONE (01:03)
[2022-03-31] MEDS: IV LR 1000 ML 1,000 ML IV PRN ×4 (01:49→23:01)
[2022-03-31] MEDS ORDERED: Calcium Gluconate 0.465 MEQ/ML VIAL IV ONE (01:52)
[2022-03-31] MEDS ORDERED: POTASSIUM CL. PREMIX PERIPHER. 100 ML ONE (01:53)
--- NOTE | 2022-03-31 02:00 | NUR ---
QUALITY CONTROL ASSOCIATE. RECEIVED THE PT FROM OR VIA BED, S/P EX LAP. PT IS AWAKE. ALERT FOLLOW COMMANDS. OXYGEN 2L VIA NASAL CANNULA. SAT 98%. NO ACUTE DISTRESS NOTED. MINCING MACHINE OPERATOR SHOWING S ILEANA. HOB ELEVATED. IV RT AND LT HAND. IVF LR 150 ML/H. FC PATENT. URINE DRAINING.
[2022-03-31] MEDS ORDERED: NOREPINEPHRINE 8MG/250ML RTU 0 ML IV ONE (02:37)
[2022-03-31] MEDS ORDERED: ZOSYN IVPB 3.375 G in IV D5W 50ml IV ONE (03:00)
[2022-03-31] MEDS ORDERED: PIPERACILLIN /TAZOBACTAM 3.375 G VIAL IV ONE (03:54)
--- NOTE | 2022-03-31 04:17 | NUR ---
RN/ICU-PT. C/O POST OP ABDOMINAL PAIN 5/10, ACHY, DULL, ASKING FOR PAIN MED. PER PT. SHE USUALLY TAKES DILAUDID AND USUALLY HELPS AND TAKES THE EDGE OFF, WHILE MORPHINE , SHE HAD SEVERE VOMITING. Chilango HOOVER DNP WAS NOTIFIED WITH RBTO TO DC MORPHINE AND GIVE DILAUDID 1 MG SIP Q4HRS PRN PAIN 5-10. ORDERS NOTED.
[2022-03-31] MEDS ORDERED: HYDROMORPHONE 1 MG/1 ML DISP.SYRIN IV PRN ×2 (04:30→09:00)
[2022-03-31 04:40] LABS: BASOPHILS % (AUTO) 0.1 % (0.0-2.0); EOSINOPHILS % (AUTO) 0.3 % (0.0-6.0); HEMATOCRIT 28 % (33-45); HEMOGLOBIN 9.1 g/dL (11.5-14.8); LYMPHOCYTES # (AUTO) 0.7 K/uL (0.8-4.8); LYMPHOCYTES % (AUTO) 7.6 % (20.0-44.0); MEAN CORPUSCULAR HGB CONC 33 g/dl (31.0-36.0); MEAN CORPUSCULAR VOLUME 90 fL (82-100); MONOCYTES # (AUTO) 0.4 K/uL (0.1-1.30); MONOCYTES % (AUTO) 4.4 % (2.0-12.0); NEUTROPHILS # (AUTO) 8.5 K/uL (1.8-8.9); NEUTROPHILS % (AUTO) 87.6 % (43.0-81.0); PLATELET COUNT (AUTO) 133 K/uL (150-450); RED BLOOD CELL COUNT(AUTO) 3.09 MIL/uL (4.0-5.2); WHITE BLOOD COUNT (AUTO) 9.7 K/uL (4.3-11.0)
--- NOTE | 2022-03-31 05:45 | NUR ---
MAINTENANCE PLANNING CLERK. AM CARE GIVEN. REMAINING SAME LR RUNNING. HOB ELEVATED. NGT LOW INTERMITTENT SUCTION TURN AND REPOSITION Q2H. WILL CONTINUE TO MONITOR VITALS.
[2022-03-31 07:36] LABS: CREATININE 0.7 mg/dL (0.6-1.3); PHOSPHORUS 3.5 mg/dL (2.5-4.9); POTASSIUM 3.3 mmol/L (3.5-5.1)
--- NOTE | 2022-03-31 07:48 | NUR ---
WOUND CARE CONSULT: PT PRESENTS WITH SACRAL DEEP TISSUE INJURY AND VERY DRY AND FRAGILE SKIN WITH MULTIPLE DISCOLORATIONS AND LESIONS, PRESENT ON ADMISSION. RECOMMENDATIONS MADE FOR SKIN PROTECTION. DISCUSSED WITH NURSING STAFF. VLAD MCLAIN NOTED. ABDOMINAL SURGICAL DRESSING IS DRY AND INTACT. FIRST STEP LOW AIRLOSS MATTRESS IS ON ORDER. PT IS VERY THIN AND BONY. DIETARY CONSULT IN PLACE. MD IN AGREEMENT WITH PLAN OF CARE. Addendum: 03/31/22 at 0750 by CHRISTIANO WILLOUGHBY WNDNU Amended: Links added.
[2022-03-31 07:50] LABS: MAGNESIUM 0.6 mg/dL (1.8-2.4)
[2022-03-31] MEDS: PANTOPRAZOLE 40 MG VIAL IV SCH (08:38)
[2022-03-31] MEDS: Magnesium 1GM/D5W 100ML PREMIX 100 ML IV SCH ×8 (08:48→15:58)
[2022-03-31] MEDS ORDERED: Magnesium 1 GM/2 ML VIAL IV ONE (09:00)
[2022-03-31] MEDS ORDERED: MINERAL OIL/PETROLATUM,WHITE 120 GM JAR TP SCH (09:00)
[2022-03-31] MEDS: VANCOMYCIN 500 MG in IV D5W 100 ML IV SCH ×2 (09:08→23:01)
[2022-03-31] MEDS: POTASSIUM CL. PREMIX PERIPHER. 50 ML IV SCH ×2 (10:07→11:09)
[2022-03-31] MEDS: PIPERACILLIN /TAZOBACTAM 3.375 G in IV D5W 100 ML IV SCH ×2 (10:15→17:01)
[2022-03-31] MEDS: MINERAL OIL/PETROL OINT 396 GM JAR TP SCH (11:51)
[2022-03-31] MEDS ORDERED: WATER TP SCH (12:00)
[2022-03-31] MEDS ORDERED: ISOPROPYL MYRISTATE TP SCH (12:00)
[2022-03-31] MEDS ORDERED: MINERAL OIL TP SCH (12:00)
--- NOTE | 2022-03-31 13:30 | NUR ---
ICU/RN\ PER MD ORDER, MEDICAL RECORD REQUESTED FROM [facility], [facility]; [facility], [facility]; AND [facility], [address], [place]. [facility] PHONE NUMBER [phone], MEDICAL RECORD FAX NUMBER [phone], FAX REQUEST COMPLETED. [facility] PHONE NUMBER [phone], MEDICAL RECORD FAX NUMBER [phone], FAX REQUEST COMPLETED. [facility] PHONE NUMBER [phone], MEDICAL RECORD FAX NUMBER [phone], FAX REQUEST COMPLETED.
--- NOTE | 2022-03-31 20:00 | NUR ---
RN NOTE RECEIVED PT IN AWAKE, AOX4. WATCHING TV. ON 2L O2 VIA NC, NOT IN ANY DISTRESS. DENIES ANY SOB. TOLERABLE ABD PAIN AT THIS TIME. ABDOMINAL SURGICAL DRESSING CLEAN DRY AND INTACT. ON LR AT 150ML/HR. CHU CATH INPLACE, DRAINING YELLOW URINE OUTPUT. WILL CONTINUE TO MONITOR.
[2022-04-01] VITALS (19 sets, daily range): BP systolic 103–156; BP diastolic 45–78
[2022-04-01] MEDS: PIPERACILLIN /TAZOBACTAM 3.375 G in IV D5W 100 ML IV SCH ×3 (02:21→19:18)
[2022-04-01 04:58] LABS: EOSINOPHILS % (AUTO) 0.1 % (0.0-6.0); HEMATOCRIT 30 % (33-45); HEMOGLOBIN 9.6 g/dL (11.5-14.8); LYMPHOCYTES # (AUTO) 1.1 K/uL (0.8-4.8); LYMPHOCYTES % (AUTO) 8.7 % (20.0-44.0); MEAN CORPUSCULAR HGB CONC 32 g/dl (31.0-36.0); MEAN CORPUSCULAR VOLUME 90 fL (82-100); MONOCYTES # (AUTO) 0.6 K/uL (0.1-1.30); MONOCYTES % (AUTO) 4.5 % (2.0-12.0); NEUTROPHILS # (AUTO) 10.7 K/uL (1.8-8.9); NEUTROPHILS % (AUTO) 86.7 % (43.0-81.0); PLATELET COUNT (AUTO) 131 K/uL (150-450); RED BLOOD CELL COUNT(AUTO) 3.32 MIL/uL (4.0-5.2); WHITE BLOOD COUNT (AUTO) 12.4 K/uL (4.3-11.0)
[2022-04-01 05:24] LABS: CALCIUM, SERUM 6.1 mg/dL (8.5-10.1); CARBON DIOXIDE 23 mmol/L (21-32); CHLORIDE 102 mmol/L (98-107); CREATININE 0.7 mg/dL (0.6-1.3); GLUCOSE 155 mg/dL (74-106); PHOSPHORUS 2.9 mg/dL (2.5-4.9); POTASSIUM 3.3 mmol/L (3.5-5.1); SODIUM SERUM 134 mmol/L (136-145); UREA NITROGEN, BLOOD 16 mg/dL (7-18)
[2022-04-01] MEDS: IV LR 1000 ML 1,000 ML IV PRN ×2 (06:25→13:26)
--- NOTE | 2022-04-01 07:15 | NUR ---
RN NOTE PT AWAKE, ABLE TO MAKE NEEDS KNOWN. NOT IN ANY DISTRESS, TOLERATES O2 AT 2L. CONTINUE ON FLUIDS, REMAIN AFEBRILE. PT COMPLAINED OF ABDOMINAL PAIN, REFUSED TO HAVE ANY PAIN MEDICATION PER PT IT IS TOLERABLE. CHU CATH DRAINING BY GRAVITY WITH GOOD AMOUNT OF URINE. ENDORSED TO PHYLICIA FOR KENIA.
--- NOTE | 2022-04-01 07:48 | NUR ---
RN OPENING NOTE RECEIVED PT IN BED AWAKE, AOX4. ON 2L O2 VIA NC, NOT IN ANY DISTRESS. DENIES ANY SOB. TOLERABLE ABD PAIN AT THIS TIME. ABDOMINAL SURGICAL DRESSING CLEAN DRY AND INTACT. IV ACCESS NOTED ON R WRIST 20G. W/ LR AT 150ML/HR. CHU CATH IN PLACE, DRAINING YELLOW URINE OUTPUT. WILL CONTINUE TO MONITOR THROUGHOUT SHIFT.
[2022-04-01] MEDS: MINERAL OIL/PETROL OINT 396 GM JAR TP SCH (08:01)
[2022-04-01] MEDS: PANTOPRAZOLE 40 MG VIAL IV SCH (08:01)
[2022-04-01] MEDS: VANCOMYCIN 500 MG in IV D5W 100 ML IV SCH (09:00)
[2022-04-01] MEDS: POTASSIUM CL. PREMIX PERIPHER. 50 ML IV SCH ×2 (09:36→10:24)
--- NOTE | 2022-04-01 10:17 | NUR ---
pt not tolerating iv potassium, even at below 50ml/hr rate. notified md. awaiting orders. pt now on clear liquid diet, not NPO.
[2022-04-01] MEDS ORDERED: POTASSIUM CHLORIDE 20 MEQ TAB.PRT.SR PO ONE (11:00)
--- NOTE | 2022-04-01 12:36 | NUR ---
PO potassium given, pt finished 75% of first clear liquid diet lunch. transfer orders in.
--- NOTE | 2022-04-01 18:10 | NUR ---
RN NOTE RECEIVED BEDSIDE REPORT FROM PHYLICIA KEYS. PATIENT TRANSFERRED FROM ICU. PATIENT IS AWAKE, ALERT/ORIENTED X 3, ABLE TO MAKE NEEDS KNOWN. ON O2 VIA NC AT 2LPM. BREATHING EVEN AND UNLABORED. NO SOB OR ANY RESPIRATORY DISTRESS NOTED. IV ACCESS ON RIGHT WRIST. NOTED WITH CHU CATHETER, DRAINING VIA GRAVITY. ALL SAFETY MEASURES IN PLACE. HOB ELEVATED. BED LOCKED AND IN LOWEST POSITION. CALL LIGHT WITHIN REACH. SIDE RAILS UP X 2. WILL CONTINUE TO MONITOR.
--- NOTE | 2022-04-01 19:19 | NUR ---
RN CLOSING NOTES NO SIGNIFICANT CHANGES ON PATIENT CONDITION IN REMAINDER OF SHIFT. PATIENT AWAKE, ALERT/ORIENTED X 3. NO SOB OR ANY DISTRESS NOTED. ALL NEEDS ANTICIPATED. ALL SAFETY MEASURES IN PLACE. ENDORSED TO MUSEUM HOST/HOSTESS NURSE FOR CONTINUITY OF CARE.
--- NOTE | 2022-04-01 22:35 | NUR ---
EMOTIONAL SUPPORT TEACHER OPENING NOTE PT RECEIVED IN BED, AWAKE, WATCHING TV, A&O X4, CALM, COOPERATIVE. PT ON 2L NC WITH CURRENT O2SAT OF 100%; NO S/S OF RESP DISTRESS, NO SOB OR COUGH, NON-LABORED AND EQUAL BREATHING. PT ATTACHED TO EXTERNAL MONITOR, SB WITH HR OF 58. CHU INTACT AND PATENT, NO SIGNS OF LEAKING, DRAINING CLEAR AND YELLOW URINE. PT NOTED TO HAVE DRESSING IN PLACE AFTER EX LAP AND LYSIS OF ADHESIONS; DRESSING C/D/I, NOT SATURATED. IV ACCESS ON RIGHT WRIST 20G INTACT AND PATENT, FLUSHES EASILY WITH NO RESISTANCE, LR INFUSING AT 150 ML/HR. BED IN LOWEST POSITION, CALL LIGHT WITHIN REACH, SIDE RAILS UP X3. WILL CONTINUE TO MONITOR THROUGHOUT THE NIGHT.
[2022-04-02] VITALS: BP 132/53
[2022-04-02] MEDS: PIPERACILLIN /TAZOBACTAM 3.375 G in IV D5W 100 ML IV SCH ×3 (02:47→18:09)
[2022-04-02] MEDS: IV LR 1000 ML 1,000 ML IV PRN (02:53)
[2022-04-02 04:00] VITALS: BP 116/68
[2022-04-02 06:06] LABS: BASOPHILS % (AUTO) 0.1 % (0.0-2.0); EOSINOPHILS % (AUTO) 0.8 % (0.0-6.0); HEMATOCRIT 35 % (33-45); HEMOGLOBIN 11.8 g/dL (11.5-14.8); LYMPHOCYTES # (AUTO) 1.9 K/uL (0.8-4.8); LYMPHOCYTES % (AUTO) 19.6 % (20.0-44.0); MEAN CORPUSCULAR HGB CONC 33 g/dl (31.0-36.0); MEAN CORPUSCULAR VOLUME 89 fL (82-100); MONOCYTES # (AUTO) 0.6 K/uL (0.1-1.30); MONOCYTES % (AUTO) 5.6 % (2.0-12.0); NEUTROPHILS # (AUTO) 7.3 K/uL (1.8-8.9); NEUTROPHILS % (AUTO) 73.9 % (43.0-81.0); PLATELET COUNT (AUTO) 140 K/uL (150-450); RED BLOOD CELL COUNT(AUTO) 3.99 MIL/uL (4.0-5.2); WHITE BLOOD COUNT (AUTO) 9.9 K/uL (4.3-11.0)
[2022-04-02 06:23] LABS: CALCIUM, SERUM 6.9 mg/dL (8.5-10.1); CARBON DIOXIDE 24 mmol/L (21-32); CHLORIDE 105 mmol/L (98-107); CREATININE 0.6 mg/dL (0.6-1.3); GLUCOSE 83 mg/dL (74-106); MAGNESIUM 1.9 mg/dL (1.8-2.4); PHOSPHORUS 2.1 mg/dL (2.5-4.9); POTASSIUM 3.8 mmol/L (3.5-5.1); SODIUM SERUM 136 mmol/L (136-145); UREA NITROGEN, BLOOD 11 mg/dL (7-18)
--- NOTE | 2022-04-02 06:50 | NUR ---
DERRICKMAN HELPER CLOSING NOTE PT REMAINS IN BED, AWAKE, A&O X4, SLEPT INTERMITTENTLY THROUGHOUT THE NIGHT, CALM, COOPERATIVE. CONTINUES TO BE ON 2L NC WITH O2SAT RANGING FROM 98%-100%; NO S/S OF RESP DISTRESS, NO SOB OR COUGH, NON-LABORED AND EQUAL BREATHING. ATTACHED TO EXTERNAL MONITOR SB-SR WITH HR LOW 58. CHU REMAINS IN PLACE DRAINING CLEAR AND YELLOW URINE. RIGHT WRIST 20G INTACT AND PATENT, FLUSHES EASILY WITH NO RESISTANCE; LR INFUSING AT 150 ML/HR. WOUND PICTURES TAKEN AND PLACED IN CHART. ALL DUE MEDS ADMINISTERED DURING THE NIGHT. BED IN LOWEST POSITION, CALL LIGHT WITHIN REACH, SIDE RAILS UP X3. WILL ENDORSE TO DAYSHIFT NURSE TO CONTINUE CARE.
--- NOTE | 2022-04-02 06:58 | NUR ---
RN OPEN NOTE PT RECEIVED IN BED, SLEEPING .PT ON 2L NC WITH CURRENT O2SAT OF 100%; NO S/S OF RESP DISTRESS, NO SOB OR COUGH, NON-LABORED AND EQUAL BREATHING. PT ATTACHED TO EXTERNAL MONITOR, SB WITH HR OF 60. CHU INTACT AND PATENT, NO SIGNS OF LEAKING, DRAINING CLEAR AND YELLOW URINE. PT NOTED TO HAVE DRESSING IN PLACE AFTER EX LAP AND LYSIS OF ADHESIONS; DRESSING C/D/I, . IV ACCESS ON RIGHT WRIST 20G INTACT AND PATENT, FLUSHES EASILY WITH NO RESISTANCE, LR RUNNING AT 150 ML/HR. BED IN LOWEST POSITION, CALL LIGHT WITHIN REACH, SIDE RAILS UP X3. WILL CONTINUE TO MONITOR THROUGHOUT THE SHIFT.
[2022-04-02] MEDS: PANTOPRAZOLE 40 MG VIAL IV SCH (08:30)
[2022-04-02] MEDS: MINERAL OIL/PETROL OINT 396 GM JAR TP SCH (08:34)
[2022-04-02] MEDS ORDERED: K PHOS NEUTRAL 250 MG TABLET PO ONE (10:00)
[2022-04-02 13:14] VITALS: BP 114/64
[2022-04-02 16:00] VITALS: BP 120/75
--- NOTE | 2022-04-02 19:02 | NUR ---
BAIT PAINTER CLOSING NOTE PT REMAINS IN BED, AWAKE, A&O X4, SLEPT INTERMITTENTLY THROUGHOUT THE NIGHT, CALM, COOPERATIVE. CONTINUES TO BE ON 2L NC WITH O2SAT RANGING FROM 98%-100%; NO S/S OF RESP DISTRESS, NO SOB OR COUGH, NON-LABORED AND EQUAL BREATHING. . CHU REMAINS IN PLACE DRAINING CLEAR AND YELLOW URINE. RIGHT WRIST 20G INTACT AND PATENT, FLUSHES EASILY WITH NO RESISTANCE; LR INFUSING AT 150 ML/HR. WOUND PICTURES TAKEN AND PLACED IN CHART. ALL DUE MEDS ADMINISTERED DURING THE NIGHT. BED IN LOWEST POSITION, CALL LIGHT WITHIN REACH, SIDE RAILS UP X3. WILL ENDORSE TO DAYSHIFT NURSE TO CONTINUE CARE.
[2022-04-02 20:00] VITALS: BP 112/54
--- NOTE | 2022-04-02 20:00 | NUR ---
RN OPEN NOTE PT RECEIVED IN BED, AWAKE . ON 2L O2 VIA NC WITH O2SAT OF 96%;V/S STABLE AFEBRILE . NO S/S OF RESP DISTRESS, NO SOB NOTED NON-LABORED AND EQUAL BREATHING. ON TELE SR ON MONITOR, CHU INTACT AND PATENT, NO SIGNS OF LEAKING, DRAINING CLEAR AND YELLOW URINE. PT NOTED TO HAVE DRESSING IN PLACE AFTER EX LAP AND LYSIS OF ADHESIONS; DRESSING C/D/I, . IV ACCESS ON RIGHT WRIST 20G INTACT AND PATENT, FLUSHES EASILY WITH NO RESISTANCE, LR RUNNING AT 150 ML/HR. BED IN LOWEST POSITION, CALL LIGHT WITHIN REACH, SIDE RAILS UP X3. WILL CONTINUE TO MONITOR PTS.
[2022-04-03] VITALS: BP 101/63
[2022-04-03] MEDS: PIPERACILLIN /TAZOBACTAM 3.375 G in IV D5W 100 ML IV SCH ×3 (01:08→17:57)
[2022-04-03] MEDS: IV LR 1000 ML 1,000 ML IV PRN ×3 (02:44→23:34)
[2022-04-03 05:20] VITALS: BP 155/52
[2022-04-03 06:29] LABS: BASOPHILS % (AUTO) 0.2 % (0.0-2.0); EOSINOPHILS % (AUTO) 2.9 % (0.0-6.0); HEMATOCRIT 33 % (33-45); HEMOGLOBIN 10.9 g/dL (11.5-14.8); LYMPHOCYTES # (AUTO) 1.4 K/uL (0.8-4.8); MEAN CORPUSCULAR HGB CONC 33 g/dl (31.0-36.0); MEAN CORPUSCULAR VOLUME 89 fL (82-100); MONOCYTES # (AUTO) 0.4 K/uL (0.1-1.30); MONOCYTES % (AUTO) 6.1 % (2.0-12.0); NEUTROPHILS # (AUTO) 4.7 K/uL (1.8-8.9); NEUTROPHILS % (AUTO) 69.8 % (43.0-81.0); PLATELET COUNT (AUTO) 115 K/uL (150-450); RED BLOOD CELL COUNT(AUTO) 3.72 MIL/uL (4.0-5.2); WHITE BLOOD COUNT (AUTO) 6.7 K/uL (4.3-11.0)
--- NOTE | 2022-04-03 06:54 | NUR ---
SAGGER PREPARER CLOSING NOTE PATIENT REMAINS IN BED AWAKE, ALERT, ORIENTED X 4. V/S STABLE AFEBRILE ON 2LITERS OF O2 SATING 98% . NO SOB ,NO RESPIRATORY DISTRESS NOTED. ON IV FLUID OF LR @ 150 ML/HR, NO INFILTRATION NOTED. PTS ON CLEAR LIQUID TOLERATING WELL .F/C DRAINING WITH YELLOWISH URINE , DRESSING DRY CLEAN .HOB KEPT ELEVATED. BED LOCKED AND IN LOWEST POSITION. CALL LIGHT WITHIN REACH. WILL ENDORSE TO RN DAY SHIFT FOR CONTINUITY OF CARE.
[2022-04-03 07:16] LABS: CALCIUM, SERUM 7.5 mg/dL (8.5-10.1); CREATININE 0.7 mg/dL (0.6-1.3); MAGNESIUM 1.5 mg/dL (1.8-2.4); PHOSPHORUS 2.2 mg/dL (2.5-4.9); POTASSIUM 3.2 mmol/L (3.5-5.1)
--- NOTE | 2022-04-03 07:25 | NUR ---
RN OPEN NOTE PT RECEIVED IN BED, AWAKE . ON 2L O2 VIA NC. NO S/S OF RESP DISTRESS, NO SOB NOTED NON-LABORED AND EQUAL BREATHING. ON TELE SR ON MONITOR, CHU INTACT AND PATENT, NO SIGNS OF LEAKING, DRAINING CLEAR AND YELLOW URINE. PT NOTED TO HAVE DRESSING IN PLACE AFTER EX LAP AND LYSIS OF ADHESIONS; DRESSING C/D/I, . IV ACCESS ON RIGHT WRIST 20G INTACT AND PATENT, FLUSHES EASILY WITH NO RESISTANCE, LR RUNNING AT 150 ML/HR. BED IN LOWEST POSITION, CALL LIGHT WITHIN REACH, SIDE RAILS UP X3.
[2022-04-03 08:00] VITALS: BP 145/66
[2022-04-03] MEDS: PANTOPRAZOLE 40 MG TABLET.DR PO SCH (08:31)
[2022-04-03] MEDS: MINERAL OIL/PETROL OINT 396 GM JAR TP SCH (08:31)
[2022-04-03] MEDS: Magnesium 1GM/D5W 100ML PREMIX 100 ML IV SCH ×3 (08:43→10:00)
[2022-04-03] MEDS ORDERED: K PHOS NEUTRAL 250 MG TABLET PO ONE (09:00)
--- NOTE | 2022-04-03 09:00 | NUR ---
RN NOTE PATIENT REFUSED IV MAGNESIUM SULFATE, REQUESTING PO. INFORMED DR JAIME PENDING ORDERS.
--- NOTE | 2022-04-03 09:15 | NUR ---
RN NOTE RECEIVED ORDER FOR MAGNESIUM OXIDE 400MG PO DAILY. ORDER PLACED.
[2022-04-03] MEDS ORDERED: POTASSIUM CHLORIDE 20 MEQ POWDER PACKET PO ONE (09:30)
[2022-04-03 12:00] VITALS: BP 144/67
[2022-04-03 16:00] VITALS: BP 131/64
--- NOTE | 2022-04-03 18:48 | NUR ---
RN CLOSING NOTE PATIENT REMAINS IN BED AWAKE, ALERT, ORIENTED X 4. V/S STABLE AFEBRILE ON 2LITERS OF O2 SATING 99% . NO SOB ,NO RESPIRATORY DISTRESS NOTED. ON IV FLUID OF LR @ 150 ML/HR, NO INFILTRATION NOTED. PTS ON CLEAR LIQUID TOLERATING WELL .F/C DRAINING WITH YELLOWISH URINE , DRESSING DRY CLEAN .HOB KEPT ELEVATED. BED LOCKED AND IN LOWEST POSITION. CALL LIGHT WITHIN REACH. .
[2022-04-03 20:00] VITALS: BP 134/66
--- NOTE | 2022-04-03 20:00 | NUR ---
RN OPEN NOTE PT RECEIVED IN BED, AWAKE .A/OX4 . ON 2L O2 VIA NC WITH O2SAT OF 97%;V/S STABLE AFEBRILE . NO S/S OF RESP DISTRESS, NO SOB NOTED , ON TELE SR ON MONITOR, CHU INTACT AND PATENT, NO SIGNS OF LEAKING, DRAINING CLEAR AND YELLOW URINE. . IV ACCESS ON RIGHT WRIST 20G INTACT AND PATENT, FLUSHES EASILY WITH NO RESISTANCE, LR RUNNING AT 150 ML/HR.INFUSING WELL .PTS DIET ADVANCE TO SOFT DIET TOLERATED WELL , DUE MEDS GIVEN ORDERED . BED IN LOWEST POSITION, CALL LIGHT WITHIN REACH, SIDE RAILS UP X3. WILL CONTINUE TO MONITOR PTS.
[2022-04-03] MEDS: MAGNESIUM OXIDE 400 MG TABLET PO SCH (21:48)
[2022-04-04] VITALS (7 sets, daily range): BP systolic 122–150; BP diastolic 65–78
[2022-04-04] MEDS: PIPERACILLIN /TAZOBACTAM 3.375 G in IV D5W 100 ML IV SCH ×3 (02:10→17:06)
[2022-04-04] MEDS: IV LR 1000 ML 1,000 ML IV PRN ×3 (06:01→22:56)
[2022-04-04 06:20] LABS: BASOPHILS # (AUTO) 0.1 K/uL (0.0-0.2); BASOPHILS % (AUTO) 0.7 % (0.0-2.0); EOSINOPHILS % (AUTO) 2.8 % (0.0-6.0); HEMATOCRIT 37 % (33-45); HEMOGLOBIN 12.1 g/dL (11.5-14.8); LYMPHOCYTES # (AUTO) 2.7 K/uL (0.8-4.8); LYMPHOCYTES % (AUTO) 27.6 % (20.0-44.0); MEAN CORPUSCULAR HGB CONC 33 g/dl (31.0-36.0); MEAN CORPUSCULAR VOLUME 89 fL (82-100); MONOCYTES # (AUTO) 0.7 K/uL (0.1-1.30); MONOCYTES % (AUTO) 6.9 % (2.0-12.0); NEUTROPHILS # (AUTO) 6.1 K/uL (1.8-8.9); PLATELET COUNT (AUTO) 155 K/uL (150-450); RED BLOOD CELL COUNT(AUTO) 4.16 MIL/uL (4.0-5.2); WHITE BLOOD COUNT (AUTO) 9.9 K/uL (4.3-11.0)
[2022-04-04 06:35] LABS: CALCIUM, SERUM 8.1 mg/dL (8.5-10.1); CREATININE 0.7 mg/dL (0.6-1.3); MAGNESIUM 1.5 mg/dL (1.8-2.4); PHOSPHORUS 2.3 mg/dL (2.5-4.9); POTASSIUM 3.5 mmol/L (3.5-5.1)
--- NOTE | 2022-04-04 06:49 | NUR ---
B[employer] SPECIALIST CLOSING NOTE PATIENT REMAINS IN BED AWAKE, ALERT, ORIENTED X 4. V/S STABLE AFEBRILE ON 2LITERS OF O2 SATING 98% . NO SOB ,NO RESPIRATORY DISTRESS NOTED. ON IV FLUID OF LR @ 150 ML/HR, NO INFILTRATION NOTED. PTS ON SOFT DIET TOLERATING WELL .F/C DRAINING WITH YELLOWISH URINE , DRESSING DRY CLEAN .HOB KEPT ELEVATED. BED LOCKED AND IN LOWEST POSITION. CALL LIGHT WITHIN REACH. WILL ENDORSE TO RN DAY SHIFT FOR CONTINUITY OF CARE.
--- NOTE | 2022-04-04 07:00 | NUR ---
RN OPEN NOTE PATIENT RECEIVED IN BED AWAKE, ALERT, ORIENTED X 4. ON 2LITERS OF O2 SATING 98% . BREATHING NON LABORED NO SOB ,NO SIGHS OF DISTRESS NOTED. IV ACCESS OF LR @ 150 ML/HR, NO INFILTRATION NOTED. PTS ON SOFT DIET TOLERATING WELL .F/C DRAINING WITH YELLOWISH URINE , DRESSING DRY CLEAN .HOB ELEVATED. BED LOCKED AND IN LOWEST POSITION. CALL LIGHT WITHIN REACH. WILL CONTINUE TO FALLOW POC
[2022-04-04] MEDS: PANTOPRAZOLE 40 MG TABLET.DR PO SCH (08:26)
[2022-04-04] MEDS: MINERAL OIL/PETROL OINT 396 GM JAR TP SCH (08:36)
[2022-04-04] MEDS: Magnesium 1GM/D5W 100ML PREMIX 100 ML IV SCH ×2 (10:06→10:16)
[2022-04-04] MEDS ORDERED: K PHOS NEUTRAL 250 MG TABLET PO ONE (11:00)
[2022-04-04] MEDS: PROPRANOLOL HCL 10 MG TABLET PO SCH (16:19)
[2022-04-04] MEDS: LIPASE/PROTEASE/AMYLASE 1 EACH CAPSULE.DR PO SCH (17:07)
[2022-04-04] MEDS ORDERED: MONTELUKAST SODIUM (10MG) 10 MG TABLET PO SCH (18:00)
--- NOTE | 2022-04-04 18:07 | NUR ---
RN CLOSING NOTE PATIENT REMAINS IN BED AWAKE, ALERT, ORIENTED X 4. V/S STABLE AFEBRILE ON ROOM AIR SATING 99% . NO SOB ,NO RESPIRATORY DISTRESS NOTED. ON IV FLUID OF LR @ 150 ML/HR, NO INFILTRATION NOTED. PTS ON SOFT DIET TOLERATING WELL .F/C DRAINING WITH YELLOWISH URINE , DRESSING DRY CLEAN .HOB KEPT ELEVATED. BED LOCKED AND IN LOWEST POSITION. CALL LIGHT WITHIN REACH. ALL MEDICATIONS WERE ADMINISTERED , ALL NEEDS WERE MET , BED IS AT LOWEST POSITION, BED SIDE RAILS ARE UP ,CALL LIGHT WITHIN REACH .WILL ENDORSE NIGHT SHIDT TO FALLOW UP POC..
--- NOTE | 2022-04-04 19:30 | NUR ---
FOAM RUBBER FABRICATOR OPENING NOTE RECEIVED PT IN BED AWAKE, ALERT, ORIENTED X 4. ON 2L OF O2, SATING 98% . BREATHING NON LABORED NO SOB ,NO SIGHS OF DISTRESS NOTED. IV ACCESS R WRIST RUNNING LR @ 150 ML/HR,CHU CATHETER DRAINING CLEAR LIGHT YELLOW URINE.BED LOCKED AND IN LOWEST POSITION. CALL LIGHT WITHIN REACH. MAINTAINED ISOLATION PRECAUTION. ALL SAFETY MEASURES IN PLACE. WILL CONTINUE TO MONITOR PATIENT THROUGHOUT SHIFT.
[2022-04-04] MEDS ORDERED: LATANOPROST EYE DROP 0.005% 2.5 ML BOTTLE EACHEYE SCH (22:00)
[2022-04-04] MEDS ORDERED: ATORVASTATIN 10 MG TABLET PO SCH (22:00)
[2022-04-04] MEDS: MAGNESIUM OXIDE 400 MG TABLET PO SCH (22:01)
[2022-04-05] VITALS: BP 156/81
[2022-04-05] MEDS: PIPERACILLIN /TAZOBACTAM 3.375 G in IV D5W 100 ML IV SCH ×2 (01:46→09:19)
[2022-04-05 04:00] VITALS: BP 175/88
[2022-04-05 04:05] VITALS: BP 136/88
--- NOTE | 2022-04-05 04:05 | NUR ---
MECHANICAL ASSEMBLY NOTE MANUALLY CHECKED BP AND IT [id number]. DID NOT CONTACT FOR MEDICATION.
[2022-04-05] MEDS: IV LR 1000 ML 1,000 ML IV PRN (05:52)
--- NOTE | 2022-04-05 06:47 | NUR ---
FLOW COORDINATOR OPENING NOTE PT IN BED AWAKE, ALERT, ORIENTED X 4. ON 2L OF O2, SATING 98% . BREATHING NON LABORED NO SOB ,NO S/S OF DISTRESS NOTED.TELE MONITOR READING SR WITH PVC'S/PAC'S HR80. IV ACCESS R WIRST RUNNING LR @ 150 ML/HR,CHU CATHETER DRAINING CLEAR LIGHT YELLOW URINE, OUTPUT WAS 3500ML.ALL DUE MEDS GIVEN.BED LOCKED AND IN LOWEST POSITION. CALL LIGHT WITHIN REACH. MAINTAINED ISOLATION PRECAUTION. ALL SAFETY MEASURES IN PLACE. WILL ENDORSE TO MORNING NURSE FOR CONTINUATION OF CARE. Addendum: 04/05/22 at 0648 by JUDD KEVIN RN CLOSING NOTE
--- NOTE | 2022-04-05 07:22 | NUR ---
YEAST PUMPER OPENING NOTE PT IN BED AWAKE, ALERT, ORIENTED X 4. ON ROOM AIR TOLERATING WELL SATING 98% . BREATHING NON LABORED NO SOB ,NO S/S OF DISTRESS NOTED.TELE MONITOR READING SR IV ACCESS R WIRST RUNNING LR @ 150 ML/HR,CHU CATHETER DRAINING CLEAR LIGHT YELLOW URINE, BED LOCKED AND IN LOWEST POSITION. CALL LIGHT WITHIN REACH. ALL SAFETY MEASURES IN PLACE. WILL CONTINUE TO FALLOW POC
[2022-04-05 07:58] LABS: CALCIUM, SERUM 7.9 mg/dL (8.5-10.1); CREATININE 0.7 mg/dL (0.6-1.3); MAGNESIUM 1.4 mg/dL (1.8-2.4); POTASSIUM 3.5 mmol/L (3.5-5.1)
[2022-04-05 08:00] VITALS: BP 138/95
[2022-04-05] MEDS: PANTOPRAZOLE 40 MG TABLET.DR PO SCH (08:04)
[2022-04-05] MEDS: LIPASE/PROTEASE/AMYLASE 1 EACH CAPSULE.DR PO SCH ×2 (08:04→12:37)
[2022-04-05] MEDS: PROPRANOLOL HCL 10 MG TABLET PO SCH (08:08)
[2022-04-05] MEDS ORDERED: ASPIRIN 81 MG TAB.CHEW PO SCH (09:00)
[2022-04-05] MEDS ORDERED: LACTOBACILLUS RHAMNOSUS GG 1 EACH CAP.SPRINK PO SCH (09:00)
[2022-04-05] MEDS ORDERED: FAMOTIDINE (20 MG) 20 MG TABLET PO SCH (09:00)
[2022-04-05] MEDS ORDERED: DILTIAZEM HCL CD 180 MG PO SCH (09:00)
[2022-04-05] MEDS ORDERED: COLESEVELAM HCL 625 MG PO SCH (09:00)
[2022-04-05] MEDS ORDERED: CHOLECALCIFEROL 1,000 UNIT TABLET (VIT D3) PO SCH (09:00)
[2022-04-05] MEDS ORDERED: CYANOCOBALAMIN 500 MCG TABLET PO SCH (09:00)
[2022-04-05] MEDS ORDERED: SPIRONOLACTONE 25 MG TABLET PO SCH (09:00)
[2022-04-05] MEDS ORDERED: Medication Not On Formulary EA (Cranberry 400 MG) PO SCH (09:00)
[2022-04-05] MEDS ORDERED: GUAIFENESIN LA 600 MG TABLET.SA PO SCH (09:00)
[2022-04-05] MEDS: MINERAL OIL/PETROL OINT 396 GM JAR TP SCH (09:23)
[2022-04-05] MEDS ORDERED: MAGNESIUM OXIDE 400 MG TABLET PO ONE (11:00)
[2022-04-05 12:03] VITALS: BP 136/72
--- NOTE | 2022-04-05 16:37 | NUR ---
RN NOTE PATIENT IS AT STABLE CONDITION ,RECEIVED AN ORDER TO DISCHARGE .DISCHARGE INSTRUCTIONS WERE PROVIDED VERBALLY AND IN WRITTEN . PATIENT VERBALIZED UNDERSTANDING, PATIENT WAS DISCHARGED TO THE [facility] TODAY
== END 2022-04-05 16:30 | DRG 336 ==
LOC: ER 19:00 → ICU 03-31 00:57 → TELE1 04-01 17:46
PROVIDERS: ADMIT Nurse Practitioner Acute Care; ATTEND Student in an Organized Health Care Education/Training Program
PROC: 0DN80ZZ Release Small Intestine, Open Approach (ICD-10-PCS; principal; 2022-03-31)
DX: K63.89 Other specified diseases of intestine (principal); E44.0 Moderate protein-calorie malnutrition; E87.1 Hypo-osmolality and hyponatremia; N39.0 Urinary tract infection, site not specified; Z68.1 Body mass index [BMI] 19.9 or less, adult; K56.50 Intestinal adhesions [bands], unspecified as to partial versus complete obstruction; K56.7 Ileus, unspecified; E83.51 Hypocalcemia; Z20.822 Contact with and (suspected) exposure to COVID-19; I48.91 Unspecified atrial fibrillation; I10 Essential (primary) hypertension; Z90.49 Acquired absence of other specified parts of digestive tract; Z85.118 Personal history of other malignant neoplasm of bronchus and lung; Z88.5 Allergy status to narcotic agent; Z91.041 Radiographic dye allergy status; Z79.82 Long term (current) use of aspirin; Z79.899 Other long term (current) drug therapy; B96.89 Other specified bacterial agents as the cause of diseases classified elsewhere; N28.9 Disorder of kidney and ureter, unspecified; K21.9 Gastro-esophageal reflux disease without esophagitis; K83.9 Disease of biliary tract, unspecified; I71.4 Abdominal aortic aneurysm, without rupture; E86.0 Dehydration; E78.5 Hyperlipidemia, unspecified; E87.6 Hypokalemia; E83.42 Hypomagnesemia; E88.09 Other disorders of plasma-protein metabolism, not elsewhere classified; E83.39 Other disorders of phosphorus metabolism; Z98.890 Other specified postprocedural states; Z87.19 Personal history of other diseases of the digestive system; N81.10 Cystocele, unspecified; G89.29 Other chronic pain; Z90.411 Acquired partial absence of pancreas; Z92.3 Personal history of irradiation; K57.50 Diverticulosis of both small and large intestine without perforation or abscess without bleeding
CPT/HCPCS: 36415; 71045-TC; 80048-TC; 80076-TC; 81001; 83605-TC; 83690-TC; 83735-TC; 84100-TC; 85025-TC; 85730-TC; 86803; 86850-TC; 87040-TC; 87070-TC; 87075-TC; 87086-TC; 87806; 92611-TC; 94799-TC; 97116-TC; 97530-TC; A6209; C9113; C9803; G0378; J0330; J0610; J0690; J1100; J1170; J2405; J2543; J3010; J3370; J3475; J3480; J3490; J7030; J7050; J7060; J7120